=== PATIENT | male | born 1965 | race American Indian/Alaskan Native ===

== ENCOUNTER 2020-10-11 20:34 | Emergency (ER) | payer MEDICARE ==
[2020-10-11] MEDS ORDERED: LIDOCAINE (1%) 10 MG/1 ML VIAL 20 ML MDV INFILTRATI ONE (22:54)
--- NOTE | 2020-10-12 00:02 | Emergency Department Report ---
- General Chief complaint: Skin/Abscess/Foreign Body Stated complaint: CYST ON BUTTOCKS Time Seen by Provider: 10/11/20 22:54 Source: patient Mode of arrival: Ambulatory Limitations: No Limitations - History of Present Illness Initial comments: Patient is a 55-year-old male presents the emergency room with complaints of a possible abscess to the left buttock that began initially a week ago. He states in the last 2 days it has gotten worse and become more painful and increased in size. He states he has noticed some drainage from the site. He states that the drainage began today. He denies any fever, chills, nausea, vomiting, rectal pain. Past medical history of ESRD on dialysis, he states he completed a full session of dialysis today. He also has a history of hypertension. No allergies to medicines. - Related Data Previous Rx's Medication Instructions Recorded Last Taken Type Acetaminophen/Codeine [Tylenol 1 tab PO Q6H PRN #10 tab 10/12/20 Unknown Rx /Codeine # 3 tab] Clindamycin [Clindamycin CAP] 450 mg PO TID 7 Days #63 capsule 10/12/20 Unknown Rx Allergies Allergy/AdvReac Type Severity Reaction Status Date / Time No Known Allergies Allergy Unverified 10/11/20 22:31 Abscess Boil HPI - HPI Chief Complaint: Skin/Abscess/Foreign Body Stated Complaint: CYST ON BUTTOCKS Time Seen by Provider: 10/11/20 22:54 Home Medications: Previous Rx's Medication Instructions Recorded Last Taken Type Acetaminophen/Codeine [Tylenol 1 tab PO Q6H PRN #10 tab 10/12/20 Unknown Rx /Codeine # 3 tab] Clindamycin [Clindamycin CAP] 450 mg PO TID 7 Days #63 capsule 10/12/20 Unknown Rx Allergies/Adverse Reactions: Allergies Allergy/AdvReac Type Severity Reaction Status Date / Time No Known Allergies Allergy Unverified 10/11/20 22:31 ED Review of Systems ROS: Stated complaint: CYST ON BUTTOCKS Other details as noted in HPI Comment: All other systems reviewed and negative ED Past Medical Hx - Past Medical History Previous Medical History?: Yes Hx Hypertension: Yes Hx Renal Disease: Yes (Dialysis M/W/F) - Surgical History Past Surgical History?: Yes Additional Surgical History: lymph node removal. left knee sx - Social History Smoking Status: Never Smoker Substance Use Type: None - Medications Home Medications: Home Medications Medication Instructions Recorded Confirmed Last Taken Type Acetaminophen/Codeine [Tylenol 1 tab PO Q6H PRN #10 tab 10/12/20 Unknown Rx /Codeine # 3 tab] Clindamycin [Clindamycin CAP] 450 mg PO TID 7 Days #63 capsule 10/12/20 Unknown Rx ED Physical Exam - General Limitations: No Limitations General appearance: alert, in no apparent distress - Head Head exam: Present: atraumatic, normocephalic - Eye Eye exam: Present: normal appearance - ENT ENT exam: Present: mucous membranes moist - Neurological Exam Neurological exam: Present: alert, oriented X3 - Psychiatric Psychiatric exam: Present: normal affect, normal mood - Skin Skin exam: Present: warm, dry, other (4 cm area of induration present to the left lower gluteus, there are multiple small openings with small amount of drainage, no blistering, no necrosis, no perianal, scrotal, or perineum involvement, head neck surgeon: KALYN cam) ED Course Vital Signs 10/11/20 10/12/20 22:31 00:35 Temperature 98.6 F Pulse Rate 62 61 Respiratory 16 17 Rate Blood Pressure 191/93 173/94 [Right] O2 Sat by Pulse 98 99 Oximetry - I & D Buttocks Type of Procedure: Complex Site: left lower buttock Blade Size: 11 I & D Procedure: betadine prep, sterile drapes applied, sterile dressing applied Progress: Verbal consent obtained Skin prepped with Betadine, sterile drapes applied, 6 cc of 1% lidocaine without epinephrine used anesthetic, 2 cm incision made with 11 blade, small to , moderate amount of purulent drainage expressed, irrigated with saline, patient tolerated well, no complications, bleeding controlled, sterile dressing applied Outpatient Physical Therapist during procedure Delfino residential building inspector ED Medical Decision Making - Lab Data Vital Signs 10/11/20 10/12/20 22:31 00:35 Temperature 98.6 F Pulse Rate 62 61 Respiratory 16 17 Rate Blood Pressure 191/93 173/94 [Right] O2 Sat by Pulse 98 99 Oximetry - Medical Decision Making Patient is a 55-year-old male presents the emergency room with complaints of a possible abscess to the left buttock that began initially a week ago. He states in the last 2 days it has gotten worse and become more painful and increased in size. He states he has noticed some drainage from the site. He states that t he drainage began today. He denies any fever, chills, nausea, vomiting, rectal pain. Past medical history of ESRD on dialysis, he states he completed a full session of dialysis today. He also has a history of hypertension. No allergies to medicines. Vitals are stable. On exam:4 cm area of induration present to the left lower gluteus, there are multiple small openings with small amount of drainage, no blistering, no necrosis, no perianal, scrotal, or perineum involvement, head neck surgeon: KALYN cam. I&D performed per procedure note with head neck surgeon present. Patient given prescription for clindamycin and Tylenol with codeine. Advised patient Please take medication as prescribed. Do not drive or operate machinery while taking pain medication. Follow-up with your primary care doctor. Follow-up with a general surgeon. Return to emergency room immediately for any new or worsening symptoms. Critical care attestation.: If time is entered above; I have spent that time in minutes in the direct care of this critically ill patient, excluding procedure time. ED Disposition Clinical Impression: Abscess, gluteal, left Disposition: DC-01 TO HOME OR SELFCARE Is pt being admited?: No Does the pt Need Aspirin: No Condition: Stable Instructions: Skin Abscess, [id number], Incision and Drainage Additional Instructions: Please take medication as prescribed. Do not drive or operate machinery while taking pain medication. Follow-up with your primary care doctor. Follow-up with a general surgeon. Return to emergency room immediately for any new or worsening symptoms. Prescriptions: Clindamycin [Clindamycin CAP] 450 mg PO TID 7 Days #63 capsule Acetaminophen/Codeine [Tylenol /Codeine # 3 tab] 1 tab PO Q6H PRN #10 tab PRN Reason: severe pain Referrals: your, primary care doctor [Other] - 2-3 Days GINO CALERO DO [Staff Physician] - 2-3 Days Time of Disposition: 00:03 Print Language: MAURITANIAN
[2020-10-12 01:07] VITALS: BP 173/94
== END 2020-10-12 00:35 | disposition home or self-care (01) ==
LOC: ED 20:34
DX: L02.31 Cutaneous abscess of buttock (principal); I10 Essential (primary) hypertension; Z98.890 Other specified postprocedural states; Z79.2 Long term (current) use of antibiotics; Z79.899 Other long term (current) drug therapy
CPT/HCPCS: 99282

== ENCOUNTER 2020-10-17 19:13 | Emergency (ER) | payer MEDICARE ==
[2020-10-17] MEDS ORDERED: cloNIDine 0.1 MG TAB PO ONE (20:39)
--- NOTE | 2020-10-17 20:44 | Emergency Department Report ---
ED General Adult HPI - General Chief complaint: Nosebleed Stated complaint: NOSE BLEED X1 HOUR Time Seen by Provider: 10/17/20 20:38 Source: patient Mode of arrival: Ambulatory Limitations: No Limitations - History of Present Illness Initial comments: Patient 55-year-old -[place] male history of hypertension, end-stage renal disease, who presents for spontaneous nosebleed x10 minutes. Patient states history of same, describes bleeding as dark red primarily right nostril. There is no fever, chills, lightheadedness, no nausea vomiting, patient denies head trauma. Patient scheduled for dialysis on Friday and Friday. Patient denies other symptoms. Bleeding is currently controlled with direct pressure. Via self applied nasal packing with toilet tissue. - Related Data Previous Rx's Medication Instructions Recorded Last Taken Type Acetaminophen/Codeine [Tylenol 1 tab PO Q6H PRN #10 tab 10/12/20 Unknown Rx /Codeine # 3 tab] Clindamycin [Clindamycin CAP] 450 mg PO TID 7 Days #63 capsule 10/12/20 Unknown Rx Oxymetazoline 0.05% [Vicks Sinex] 2 spray NS PRN PRN #1 bottle 10/17/20 Unknown Rx Allergies Allergy/AdvReac Type Severity Reaction Status Date / Time No Known Allergies Allergy Unverified 10/11/20 22:31 ED Review of Systems ROS: Stated complaint: NOSE BLEED X1 HOUR Other details as noted in HPI Constitutional: denies: chills, fever Eyes: denies: eye pain, eye discharge, vision change ENT: epistaxis Respiratory: denies: cough, shortness of breath, wheezing Cardiovascular: denies: chest pain, palpitations Endocrine: no symptoms reported Gastrointestinal: denies: abdominal pain, nausea, diarrhea Genitourinary: denies: urgency, dysuria Musculoskeletal: denies: back pain, joint swelling, arthralgia Skin: denies: rash, lesions Neurological: denies: headache, weakness, paresthesias Psychiatric: denies: anxiety, depression Hematological/Lymphatic: denies: easy bleeding, easy bruising ED Past Medical Hx - Past Medical History Hx Hypertension: Yes Hx Renal Disease: Yes (Dialysis M/W/F) - Surgical History Additional Surgical History: lymph node removal. left knee sx - Social History Smoking Status: Never Smoker Substance Use Type: None - Medications Home Medications: Home Medications Medication Instructions Recorded Confirmed Last Taken Type Acetaminophen/Codeine [Tylenol 1 tab PO Q6H PRN #10 tab 10/12/20 Unknown Rx /Codeine # 3 tab] Clindamycin [Clindamycin CAP] 450 mg PO TID 7 Days #63 capsule 10/12/20 Unknown Rx Oxymetazoline 0.05% [Vicks Sinex] 2 spray NS PRN PRN #1 bottle 10/17/20 Unknown Rx ED Physical Exam - General Limitations: No Limitations General appearance: alert, in no apparent distress - Head Head exam: Present: atraumatic, normocephalic - Eye Eye exam: Present: normal appearance, EOMI Pupils: Present: normal accommodation - ENT ENT exam: Present: normal orophraynx, mucous membranes moist, TM's normal bilaterally, normal external ear exam, other (epistaxis anterior R nare ) - Neck Neck exam: Present: normal inspection, full ROM. Absent: tenderness - Respiratory Respiratory exam: Present: normal lung sounds bilaterally. Absent: respiratory distress, wheezes - Cardiovascular Cardiovascular Exam: Present: regular rate, normal rhythm, normal heart sounds. Absent: systolic murmur, diastolic murmur, rubs, gallop - GI/Abdominal GI/Abdominal exam: Present: soft, normal bowel sounds - Rectal Rectal exam: Present: deferred - Extremities Exam Extremities exam: Present: normal inspection - Back Exam Back exam: Present: normal inspection - Neurological Exam Neurological exam: Present: alert, oriented X3 - Psychiatric Psychiatric exam: Present: normal affect, normal mood - Skin Skin exam: Present: warm, dry, intact, normal color. Absent: rash ED Course Vital Signs 10/17/20 10/17/20 20:25 21:52 Temperature 97.7 F Pulse Rate 59 L 52 L Respiratory 18 Rate Blood Pressure 174/89 174/92 O2 Sat by Pulse 97 Oximetry - Reevaluation(s) Reevaluation #1: Nosebleed controlled with Afrin nasal spray and 4 x 4 packing the right nare. Bleeding is resolved. Fair pharynx is patent no swelling the uvula is midline no exudate , patient is tolerating procedure with minimal distress. BP improved with medications given in ED 10/17/20 22:35 ED Medical Decision Making - Medical Decision Making BP improved, epistaxis resolved, plan DC to home with Afrin nasal spray as directed, follow-up with ENT, take BP medicines as prescribed, return to ED should symptoms return or worsen. Patient verbalized agreement and understanding of discharge plan. Patient DC'd home in stable condition at this time. Critical care attestation.: If time is entered above; I have spent that time in minutes in the direct care of this critically ill patient, excluding procedure time. ED Disposition Clinical Impression: Epistaxis HTN (hypertension) Qualifiers: Hypertension type: essential hypertension Qualified Code(s): I10 - Essential (primary) hypertension Disposition: DC-01 TO HOME OR SELFCARE Is pt being admited?: No Does the pt Need Aspirin: No Condition: Stable Instructions: Hypertension (ED), Managing Your Hypertension, Nosebleed, [id number] Additional Instructions: use afring nasal spray as directed, follow up with Ear Nose and Throat Doctor as directed, follow up with your doctor in 2-3 days , take bp medications as prescribed, return to emergency if symptoms worsen. Prescriptions: Oxymetazoline 0.05% [Vicks Sinex] 2 spray NS PRN PRN #1 bottle PRN Reason: nose bleed Referrals: ALISON TIERNEY MD [Staff Physician] - 3-5 Days Forms: Work/School Release Form(ED) Time of Disposition: 22:47
[2020-10-17] MEDS: OXYMETAZOLINE 0.05% NASAL SPRAY NS ONE ×2 (20:57→21:00)
[2020-10-17] MEDS ORDERED: hydrALAZINE 25 MG TAB PO ONE (21:48)
[2020-10-17 23:00] VITALS: BP 145/81
== END 2020-10-17 23:30 | disposition home or self-care (01) ==
LOC: ED 19:13
DX: R04.0 Epistaxis (principal); I10 Essential (primary) hypertension; Z98.890 Other specified postprocedural states; Z79.899 Other long term (current) drug therapy
CPT/HCPCS: 99282